=== PATIENT | female | born 1985 | race Caucasian/White ===

== ENCOUNTER 2020-05-30 09:48 | Emergency (ER) | payer MEDICAID, SELFPAY ==
[2020-05-30 10:00] VITALS: BP 108/77; PULSE 109; RESP 16; TEMP 36.1; O2SAT 100
--- NOTE | 2020-05-30 10:17 | ED.GENADULT ---
HPI - General Adult General Chief complaint: Skin/Abscess/Foreign Body Stated complaint: rash on my arms, now its everywhere Time Seen by Provider: 05/30/20 10:03 Source: patient Mode of arrival: ambulatory Limitations: no limitations History of Present Illness HPI narrative: Patient presents with chief complaint of a fine raised pruritic rash on her arms stomach and legs. Patient states she has not been exposed to any known soaps lotions or detergents that could have caused her symptoms. Patient states she did recently relocate here from [place]. She denies known exposure to bedbugs or other biting insects and states out of her and children she is the only one of the rash. She denies any fever, chills, shortness of breath, involvement of the face or throat, issue swallowing or breathing or any other symptoms. Patient states she has been taking Benadryl but the rash has not resolved. Patient denies any chronic medical conditions. Related Data Allergies Allergy/AdvReac Type Severity Reaction Status Date / Time Penicillins Allergy Unknown Verified 05/30/20 10:07 Review of Systems Review of Systems: Narrative: CONSTITUTIONAL: Denies fever, chills, or sweats. EYES: Denies visual changes, redness, or discharge. ENT: Denies rhinorrhea, congestion, sore throat, or otalgia. CARDIOVASCULAR: Denies chest pain, palpitations, or edema. RESPIRATORY: Denies cough or dyspnea. GASTROINTESTINAL: Denies abdominal pain, nausea, vomiting, or diarrhea. GENITOURINARY: Denies dysuria or hematuria. SKIN: Reports rash and itching. MUSCULOSKELETAL: Denies back pain, joint pain, or myalgia. NEUROLOGIC: Denies headache, numbness, dizziness, or weakness. PSYCHIATRIC: Denies anxiety or depression. PMFSH Social History Social History Gender identity (if verbalized by the patient): Female Exam Narrative: Exam Narrative: GENERAL: Well-appearing, well-nourished, and in no acute distress. HEAD: Normocephalic, atraumatic. No facial involvement of rash. EYES: PERRLA and EOMI. ENT: Nares clear, no rhinorrhea or epistaxis. Mucous membranes moist. Bilateral TMs pearly carrion nonbulging NECK: Supple. No adenopathy or masses. CHEST: Clear to auscultation. No respiratory distress. No wheezes rales or rhonchi HEART: Regular rate and rhythm. No murmur heard. Normal peripheral pulses. EXTREMITIES: Normal range of motion. No edema. SKIN: Warm, dry. fine, Slightly raised rash to the arms back abdomen and legs. Excoriations noted. There is not weeping or drainage. It is not vesicular-like lesions. NEURO: No focal deficits. Alert and oriented x3. PSYCH: Normal mood and affect. Course Vital Signs Vital signs: Vital Signs Temperature 97 F L 05/30/20 10:00 Pulse Rate 109 H 05/30/20 10:00 Respiratory Rate 16 05/30/20 10:00 Blood Pressure 108/77 05/30/20 10:00 Pulse Oximetry 100 05/30/20 10:00 Temperature 97 F L 05/30/20 10:00 Pulse Rate 109 H 05/30/20 10:00 Respiratory Rate 16 05/30/20 10:00 Blood Pressure 108/77 05/30/20 10:00 Pulse Oximetry 100 05/30/20 10:00 Medical Decision Making MDM Narrative Medical decision making narrative: Patient's rash appears to be an allergic reaction. We will give her a Solu-Medrol injection and discharge her with a Medrol Dosepak, Pepcid and Zyrtec. Patient instructed to evaluate her environment for any potential irritants. Patient instructed to follow-up with her primary care for reevaluation if symptoms persist. Patient instructed to return to emergency department she has any emergent symptoms. Differential Diagnosis Differential Diagnosis: Abscess, herpes zoster, allergic reaction Vital Signs Vital Signs: Vital Signs Temperature 97 F L 05/30/20 10:00 Pulse Rate 109 H 05/30/20 10:00 Respiratory Rate 16 05/30/20 10:00 Blood Pressure 108/77 05/30/20 10:00 Pulse Oximetry 100 05/30/20 10:00 Temperature 97 F L 05/30/20 10:00 Pulse Rate 109 H 05/30/20 10:00 R
[2020-05-30] MEDS: methylPREDNISolone SOD SUCC 125 MG VIAL IM (10:37)
== END 2020-05-30 10:50 | disposition home or self-care (01) ==
PROVIDERS: Emergency Provider Emergency Medicine
DX: L25.9 Unspecified contact dermatitis, unspecified cause (principal)
CPT/HCPCS: 96372; 99283; J2930

== ENCOUNTER 2021-05-30 11:41 | Outpatient (CLI) | payer OTHER, SELFPAY ==
--- NOTE | 2021-05-30 | ECG_ITS ---
Measurements Intervals Colbert Rate: 87 P: 64 OR: 158 QRS: 73 QRSD: 72 T: 65 QT: 340 QTc: 411 Interpretive Statements SINUS RHYTHM NORMAL ECG Electronically Signed On 05-30-2021 12:28:45 BENEFITS ADMINISTRATOR by Kermit Irene D.O.
== END 2021-05-30 11:42 | disposition home or self-care (01) ==
LOC: ANHCARD 11:46
PROVIDERS: PCP Obstetrics & Gynecology; Visit Provider Obstetrics & Gynecology
DX: R00.2 Palpitations (principal)
CPT/HCPCS: 93005

== ENCOUNTER 2021-08-31 15:01 | Outpatient (RCR) | payer OTHER, SELFPAY ==
--- NOTE | ~2021-08-31 | US_ITS ---
EXAMINATION: US OB follow up DATE: 08/31/2021 16:25 INDICATION: growth assessment and amniotic fluid index measurement during third trimester pregn rizwan TECHNIQUE: Real-time ultrasound of the pelvis was performed. The interpreting radiologist was not pre sent for the study. COMPARISON: None. FINDINGS: There is a single living fetus in vertex presentation. The placenta is anterior. card iac activity and movement are noted. heart rate is 144 beats per minute (bpm). The amniot ic fluid index is 15.2 cm which is normal (normal range: 7.9 cm to 24.9 cm). The following biometric data were obtained: Biparietal diameter (BPD): 8.9 cm; head circumference (HC): 31.6 cm; abdominal circumference (AC): 31 .7 cm; femur length (FL): 6.8 cm. These measurements are concordant. Estimated weight is 2685 g +/- 402 g, which correlates with the 46th percentile when 10/01/2021 is used as estimated date of delivery. As single measurements, these parameters are each equal to the following estimated gestational ages w ith ranges of +/- 2 standard deviations: BPD: 36 weeks 2 days +/- 3 weeks 1 days. HC: 35 weeks 3 days +/- 3 weeks 0 days. AC: 35 weeks 4 days +/- 3 weeks 0 days. FL: 34 weeks 6 days +/- 3 weeks 0 days. estimated gestational age based solely on measurements from this exam is 35 weeks 4 days +/- 2 weeks 3 days. IMPRESSION: 1. Single living fetus in vertex presentation. 2. Normal amniotic fluid index. 3. Estimated weight is 2685 g +/- 402 g, which correlates with the 46th percentile when 10/02/19 22 is used as estimated date of delivery. Reviewed, dictated and finalized at location B. N DANCE INSTRUCTOR IMPRESSION: 1. Single living fetus in vertex presentation. 2. Normal amniotic fluid index. 3. Estimated weight is 2685 g +/- 402 g, which correlates with the 46th p ercentile when 10/01/2021 is used as estimated date of delivery.
[2021-08-31 16:30] VITALS: PULSE 80
== END 2021-09-29 13:21 | disposition home or self-care (01) ==
LOC: ANHOBOP 15:01
PROVIDERS: Visit Provider Obstetrics & Gynecology
DX: O09.513 Supervision of elderly primigravida, third trimester (principal); Z3A.35 35 weeks gestation of pregnancy
CPT/HCPCS: 59025; 76816

== ENCOUNTER 2021-09-24 07:52 | Inpatient (IN) | payer OTHER, SELFPAY ==
[2021-09-24] VITALS (40 sets, daily range): BP systolic 87–113; BP diastolic 50–81; PULSE 53–94; RESP 12–16; TEMP 36.1–37.2; O2SAT 97–100; BMI 25.2
--- NOTE | 2021-09-24 08:38 | PM.IMHP ---
H&P: HPI History of Present Illness Date/Time: 09/24/21 08:15 Farheen is a 36yo @ 39.1wks (RYAN 09/30/21) who presents for scheduled repeat section. She reports good movement. No contractions, bleeding, or leakage of fluid. She has had regular care. Her is complicated by: - Previous x 4, h/o x1 - AMA; NIPT LR male - H/o BTL with tubal reversal surgery; declines BTL Chief Complaint: scheduled Review of Systems Review of Systems: All systems reviewed & are unremarkable except as noted in HPI and below (HPI) [facility] Surgical History Surgical History Delivery by section (~05/02/00) primary c/s Delivery by section (~02/2011) repeat c/s with tubal Delivery by section (~07/2017) repeat Delivery by section (~07/2018) rpt c/s H/O breast augmentation History of appendectomy History of reversal of tubal ligation (~05/2016) Social History Social History Gender identity (if verbalized by the patient): Female Meds Home Medications and Allergies Home Medications Medication Instructions Recorded Confirmed Type cetirizine 10 mg tablet 10 mg PO DAILY #10 tablet 05/30/20 Rx famotidine 20 mg tablet 20 mg PO DAILY #10 tablet 05/30/20 Rx ferrous sulfate 325 mg (65 mg 325 mg PO DAILY 07/17/21 07/17/21 History iron) tablet vits no.126-ferrous fum tablet PO 07/17/21 07/17/21 History 28 mg iron-folic acid 800 mcg tablet fluconazole 150 mg tablet 150 mg PO ONCE #1 tablet 07/23/21 Rx Allergies Allergy/AdvReac Type Severity Reaction Status Date / Time Penicillins Allergy Unknown Verified 08/29/21 17:44 Exam Const: General: cooperative, healthy appearing, comfortable and no acute distress Resp: Effort & Inspection: normal respiratory effort Cardio: Rate: regular rate GI: Inspection: normal to inspection GI Palp: No abdominal tenderness and Yes Soft to palpation : Other: FHT's: 130's/ mod hunter/ + accels/ no decels - cat 1 TOCO: irritability Presentation: cephalic Membranes: intact Skin: General skin exam: normal color Neuro: General: patient oriented x3 Psych: Appearance: grossly normal Affect: normal affect Attitude: cooperative Assessment and Plan Assessment and plan (1) Previous section: Code(s): Z98.891 - History of uterine scar from previous surgery Status: Acute (2) Advanced maternal age (AMA) in : Status: Acute Additional Plan - For repeat section - All risks and benefits explained in detail including possible risk of blood transfusion or need for hysterectomy in the event of significant bleeding
--- NOTE | 2021-09-24 08:38 | WPDHPUPDATE1 ---
History and Physical Update Update Date/Time: 09/24/21 08:38 History and Physical has been reviewed, including an updated exam of the patient. There are NO changes in the patient's condition. Risks, benefits, and alternatives have been discussed and questions answered. Patient agrees to proceed with procedure.
[2021-09-24 08:48] LABS: Basophils Percent Auto 0.3 % (0.2-1.2); Eosinophils Absolute Auto 0.2 K/mm3 (0-0.3); Eosinophils Percent Auto 1.5 % (0-4.4); Hematocrit 37.8 % (37.0-47.0); Hemoglobin 12.3 g/dL (12.0-15.0); Immature Granulocyte Absolute 0.13 K/mm3 (0.00-0.031); Immature Granulocyte Percent A 1.1 % (0-0.5); Lymphocytes Absolute Auto 2.25 K/mm3 (0.9-3.2); Lymphocytes Percent Auto 18.3 % (18.3-44.2); Mean Corpuscular HGB Conc 32.5 g/dl (32-36); Mean Corpuscular Hemoglobin 29.9 pg (26-34); Mean Corpuscular Volume 91.7 fl (80-100); Monocytes Absolute Auto 1.1 K/mm3 (0.1-0.6); Monocytes Percent Auto 9.2 % (2.6-8.5); Neutrophils Absolute Auto 8.5 K/mm3 (1.3-6.7); Neutrophils Percent Auto 69.6 % (45.5-73.1); Platelet Count Result 340 k/mm3 (150-375); Red Blood Count 4.12 M/mm3 (4.2-5.4); Red Cell Distribution Width 13.3 % (11.5-14.5); White Blood Count 12.3 K/mm3 (4.5-10.0)
--- NOTE | 2021-09-24 10:01 | WPDANESEPPF ---
Anes - Initial Pre Proc Eval Procedure: Operation Date: 09/24/21 10:30 Proposed Procedures p Section - Nessa Fay MD Date/Time: 09/24/21 10:01 Surgeon: Nessa Fay MD Pre Op Diagnosis: C/S Patient Data Age: 36 Gender: F Height: 1.68 m Weight: 70.91 kg Last Vital Signs Pulse 94 09/24/21 08:31 BP 113/72 09/24/21 08:31 Allergies Allergy/AdvReac Type Severity Reaction Status Date / Time Penicillins Allergy Unknown Verified 08/29/21 17:44 Home Medications Medication Instructions Recorded Confirmed Type vits no.126-ferrous fum 1 tablet PO DAILY 07/17/21 09/24/21 History 28 mg iron-folic acid 800 mcg tablet Laboratory Tests 09/24/21 09/24/21 09/24/21 08:25 08:25 08:25 WBC 12.3 K/mm3 H K/mm3 (4.5-10.0) RBC 4.12 M/mm3 L M/mm3 (4.2-5.4) Hgb 12.3 g/dL g/dL (12.0-15.0) Hct 37.8 % % (37.0-47.0) MCV 91.7 fl fl (80-100) MCH 29.9 pg pg (26-34) MCHC 32.5 g/dl g/dl (32-36) RDW 13.3 % % (11.5-14.5) Plt Count 340 k/mm3 k/mm3 (150-375) MPV 10.0 fl fl (7.4-10.4) Immature Gran % (Auto) 1.1 % H % (0-0.5) Neut % (Auto) 69.6 % % (45.5-73.1) Lymph % (Auto) 18.3 % % (18.3-44.2) [place] % (Auto) 9.2 % H % (2.6-8.5) Eos % (Auto) 1.5 % % (0-4.4) Baso % (Auto) 0.3 % % (0.2-1.2) Lymph # (Auto) 2.25 K/mm3 K/mm3 (0.9-3.2) [place] # (Auto) 1.1 K/mm3 H K/mm3 (0.1-0.6) Eos # (Auto) 0.2 K/mm3 K/mm3 (0-0.3) Baso # (Auto) 0.0 K/mm3 K/mm3 (0.0-0.1) Abs Immat Gran (auto) 0.13 K/mm3 H K/mm3 (0.00-0.031) Absolute Neuts (auto) 8.5 K/mm3 H K/mm3 (1.3-6.7) Absolute Nucleated RBC 0.0 K/mm3 K/mm3 (0.0-0.012) Nucleated RBC % 0.0 % % (0.0-0.2) RPR Pending Blood Type A Positive Antibody Screen Negative Patient hx anesthesia problems: none Family hx anesthesia problems: none Results Review: All pre-operative results and documents have been reviewed as part of the pre-operative evaluation. [facility] Surgical History Surgical History Delivery by section (~05/02/00) primary c/s Delivery by section (~02/2011) repeat c/s with tubal Delivery by section (~07/2017) repeat Delivery by section (~07/2018) rpt c/s H/O breast augmentation History of appendectomy History of reversal of tubal ligation (~05/2016) Social History Social History Substance use: never Gender identity (if verbalized by the patient): Female Spiritual care concerns: No Anes - Eval Final PreProcedure Day of Procedure 09/24/21 10:01 Patient weight: normal Heart: regular rate and rhythm Lungs: clear to auscultation Airway: Mallampati scale class 1 Neurological: alert and oriented Last oral intake: >/= 8 hours ASA classification: II Emergent: no Anesthetic plan: proceed Anesthesia type and monitoring: regional spinal and standard monitoring Results Review: All pre-operative results and documents have been reviewed as part of the pre-operative evaluation. Informed Consent: The patient's anesthetic plan and its attendant risks and benefits were discussed with the patient/family/POA. Questions were solicited and answers provided to the satisfaction of the patient/family/POA.
[2021-09-24] MEDS: LACTATED RINGERS 1,000 ML 125 ML IV CONT (10:11)
[2021-09-24 11:07] LABS: HIV 1/2 Ab P24 Ag Result Negative (Negative)
[2021-09-24] MEDS: KETOROLAC 30 MG/ML VIAL (*BKC) IV PUSH ×2 (12:00→16:59)
--- NOTE | 2021-09-24 12:34 | PM.OBPRVD ---
OB - Delivery Note Procedure Delivery date: 09/24/21 Procedure: Procedures Operation Date: 09/24/21 10:30 <No data on this case meets the specified criteria> Events: Previous Delivery Quantitative Blood Loss (ml): 340 Anesthesia type: Spinal Disposition: Floor Baby Date of : 09/24/21 Time of : 11:56 Weeks of gestation at delivery: 39 (.1) gender: Male Weight (pounds): 7 Weight (ounces): 3 presentation: vertex position: Left Occiput Transverse Cord Vessel Description: 3 Vessels and Clamped/Cut score one minute: 9 score five minutes: 9 Narrative: She was counseled on all risks and benefits in detail. She was taken to the operating room where spinal epidural was placed. She was then prepped and draped in the normal sterile fashion. She received 2g Ancef and a time out was performed. A Pfannenstiel incision was made in the skin and carried down to the underlying fascia. The fascia was nicked on either side of the midline and the fascial incision was extended laterally and superiorly. The fascia was then elevated and the underlying rectus muscles were dissected off the fascia, superiorly and inferiorly. The rectus muscles were then in the midline and the peritoneum was entered bluntly. Once adequate exposure was obtained, a Mobius self retractor was placed within the abdomen. A low transverse incision was made on the lower uterine segment and clear fluid was noted. The occiput was brought to the hysterotomy and the head was easily delivered. The shoulder and body then followed without complications. The had spontaneous cry and the mouth and nose were bulb suctioned. The cord was clamped and cut and the infant was handed off to the awaiting pediatric nurse. A segment of the cord was collected for cord gases. The remaining cord blood was collected for typing. With pitocin infusing, the placenta delivered with gentle traction on the cord without complications. The uterus was then cleared out of all clots and debris using a clean, moist lap. The hysterotomy was then repaired in a running, interlocking fashion using 0 Vicryl. A second layer imbricating suture was then made using 0 Vicryl. The hysterotomy was found to be hemostatic and good uterine tone was noted. The bilateral adnexa were examined and found to be normal. The pelvis was cleared of all clots and fluid. The Mobius retractor was removed from the abdomen. The peritoneum, muscle, and fascia were examined and made hemostatic with bovie cautery. The fascia was then repaired using a 0 Vicryl suture in a running fashion. The subcutaneous tissue was then irrigated and made hemostatic with bovie cautery. The skin was then closed using 4-0 Monocryl in a running subcuticular fashion. Sponge, lap, needle and instrument counts were correct at the end of the procedure x2. The patient tolerated the procedure well and was taken to recovery in a stable condition.
[2021-09-24] MEDS: OXYTOCIN 30 UNITS/NS 500 ML 30 UNITS/500 ML BAG 125 UNITS IV CONT (13:20)
--- NOTE | 2021-09-24 13:41 | LDADM ---
This patient, Farheen Morris, was admitted to Labor/Delivery/Recovery 118 on 09/24/21 at 07:52. Plans for labor, pain management and were discussed with patient. Patient/family oriented to hospital policies and general routines including ID bracelet, bed and alarms, visiting hours, pain management, procedures, bathroom and other care routines, personal items, smoking policy, room service/diet and guest tray routines, security routines, and visiting hours. Patient/Family are encouraged to report perceived risks to care and to ask questions if they do not understand what they are told or what they should do. See [facility]BIX for further documentation.
[2021-09-24] MEDS: fentaNYL CITRATE INJ (*CRX) 100 MCG/2 ML VIAL 25 MCG IV PUSH ×2 (13:48→14:11)
--- NOTE | 2021-09-24 15:24 | PC.NURSE ---
Patient transferred to post room #292 via stretcher. Support person present. Oriented to unit, room, information board, rooming in, admission packet and security measures. Patient verbalizes understanding.
[2021-09-24] MEDS: DEXTROSE 5%/0.45% SOD CHL 1,000 ML 125 ML IV CONT (16:59)
[2021-09-24] MEDS: HYDROcodone/acetaminophen (*CRX) 5-325 MG TABLET 1 TAB PO (20:08)
[2021-09-25] MEDS: HYDROcodone/acetaminophen (*CRX) 5-325 MG TABLET 1 TAB PO ×5 (02:39→21:40)
[2021-09-25] MEDS: IBUPROFEN 600 MG TABLET PO ×3 (02:39→21:40)
[2021-09-25 04:00] VITALS: BP 98/63; PULSE 84; RESP 16; TEMP 37.1; O2SAT 99
[2021-09-25 05:40] LABS: Basophils Absolute Auto 0.1 K/mm3 (0.0-0.1); Basophils Percent Auto 0.3 % (0.2-1.2); Eosinophils Absolute Auto 0.1 K/mm3 (0-0.3); Eosinophils Percent Auto 0.2 % (0-4.4); Hemoglobin 9.3 g/dL (12.0-15.0); Immature Granulocyte Absolute 0.17 K/mm3 (0.00-0.031); Immature Granulocyte Percent A 0.8 % (0-0.5); Lymphocytes Absolute Auto 2.03 K/mm3 (0.9-3.2); Lymphocytes Percent Auto 9.3 % (18.3-44.2); Mean Corpuscular HGB Conc 32.1 g/dl (32-36); Mean Corpuscular Hemoglobin 30.4 pg (26-34); Mean Corpuscular Volume 94.8 fl (80-100); Mean Platelet Volume 10.2 fl (7.4-10.4); Monocytes Absolute Auto 2.3 K/mm3 (0.1-0.6); Monocytes Percent Auto 10.8 % (2.6-8.5); Neutrophils Absolute Auto 17.1 K/mm3 (1.3-6.7); Neutrophils Percent Auto 78.6 % (45.5-73.1); Platelet Count Result 286 k/mm3 (150-375); Red Blood Count 3.06 M/mm3 (4.2-5.4); Red Cell Distribution Width 13.3 % (11.5-14.5); White Blood Count 21.7 K/mm3 (4.5-10.0)
[2021-09-25] MEDS: POLYSACCHARIDE IRON COMPLEX 150 MG CAPSULE PO (07:28)
[2021-09-25] MEDS: MULTIVIT/MIN/PREN/FOL AC/IRON TABLET 1 TAB PO (07:29)
[2021-09-25] MEDS: DOCUSATE SODIUM 100 MG CAPSULE PO ×2 (07:29→17:13)
--- NOTE | 2021-09-25 07:30 | PM.OBPNVD ---
OB - PN: Subj Subjective Date/time seen: 09/25/21 07:15 Narrative: POD#1 Farheen reports doing well today. Her bleeding is light. Her pain is controlled. She is tolerating regular diet. She has ambulated around the room. The duran catheter has been removed; no spontaneous void yet. She has passed gas. She denies any issues with her incision. She is breast feeding. She would like her son circumcised. OB - PN: Obj Data Labs CBC & Chem 7: 09/25/21 03:51 Labs: Laboratory Results - last 24 hr 09/24/21 09/24/21 09/24/21 08:25 08:25 10:00 WBC 12.3 H RBC 4.12 L Hgb 12.3 Hct 37.8 MCV 91.7 MCH 29.9 MCHC 32.5 RDW 13.3 Plt Count 340 MPV 10.0 Immature Gran % (Auto) 1.1 H Neut % (Auto) 69.6 Lymph % (Auto) 18.3 [place] % (Auto) 9.2 H Eos % (Auto) 1.5 Baso % (Auto) 0.3 Lymph # (Auto) 2.25 [place] # (Auto) 1.1 H Eos # (Auto) 0.2 Baso # (Auto) 0.0 Abs Immat Gran (auto) 0.13 H Absolute Neuts (auto) 8.5 H Absolute Nucleated RBC 0.0 Nucleated RBC % 0.0 HIV 1&2 Ab/P24 Ag 4thGn Negative Blood Type A Positive Antibody Screen Negative 09/25/21 03:51 WBC 21.7 H RBC 3.06 L Hgb 9.3 L D Hct 29.0 L MCV 94.8 MCH 30.4 MCHC 32.1 RDW 13.3 Plt Count 286 MPV 10.2 Immature Gran % (Auto) 0.8 H Neut % (Auto) 78.6 H Lymph % (Auto) 9.3 L [place] % (Auto) 10.8 H Eos % (Auto) 0.2 Baso % (Auto) 0.3 Lymph # (Auto) 2.03 [place] # (Auto) 2.3 H Eos # (Auto) 0.1 Baso # (Auto) 0.1 Abs Immat Gran (auto) 0.17 H Absolute Neuts (auto) 17.1 H Absolute Nucleated RBC 0.0 Nucleated RBC % 0.0 HIV 1&2 Ab/P24 Ag 4thGn Blood Type Antibody Screen OB - PN A/P Plan day: 1 Plan: routine care Comments: - awaiting void - will recheck CBC later this morning to show stability - circumcision later today Time Spent With Patient Time: Total time spent is greater than 50% in coordination of care (as documented) at patient's floor/unit and/or counseling patient: Review of Systems Constitutional: Constitutional: Denies chills, Denies fever(s) and Denies headache(s) Eyes: Eyes: Denies change in vision ENT: Denies dizziness and Denies headache(s) Cardiovascular: Cardiovascular: Denies chest pain, Denies palpitations and Denies dyspnea Respiratory: Respiratory: Denies cough and Denies dyspnea Gastrointestinal: Gastrointestinal: Denies nausea and Denies vomiting Genitourinary: Comments: normal bleeding Neurologic: Denies dizziness and Denies headache(s) Endocrine: Endocrine: Denies palpitations Exam Const: General: cooperative, comfortable and no acute distress Orientation/consciousness: patient oriented x3 Resp: Effort & Inspection: normal respiratory effort Auscultation: clear to auscultation bilaterally Cardio: Rate: regular rate GI: Inspection: non-distended and incision (covered with clean dressing) GI Palp: Yes abdominal tenderness (appropriate) and Yes Soft to palpation Auscultation: normal bowel sounds : Other: fundus firm Skin: General skin exam: normal color Neuro: General: patient oriented x3 Extrem: General: normal to inspection Psych: Appearance: grossly normal Affect: normal affect Attitude: cooperative
[2021-09-25 08:15] VITALS: BP 95/59; PULSE 92; RESP 18; TEMP 36.6; O2SAT 100
--- NOTE | 2021-09-25 09:33 | WPDANLDPN2 ---
Anes-Prog Note L&D Date/Time: 09/25/21 09:33 Comfortable throughout: section Neuraxial method: spinal Epidural/Spinal procedure site: clean & non-tender Neuro status: Neuro function grossly intact. Cardiovascular status: normal Respiratory status: normal Airway patency: baseline Mental status: baseline Post-Op hydration status: normal Vital Signs: Last Vital Signs Temp 37.1 C 09/25/21 04:00 Pulse 84 09/25/21 04:00 Resp 16 09/25/21 04:00 BP 98/63 L 09/25/21 04:00 Pulse Ox 99 09/25/21 04:00 Pain score (VAS): 3/10 I/O: Intake & Output 09/24/21 09/25/21 09/25/21 23:59 07:59 15:59 Intake Total 740 1499 Output Total 1425 950 Balance -685 549 Post-procedural complaints: none Patient feedback: Patient satisfied with anesthetic care.
--- NOTE | 2021-09-25 09:33 | WPDANLDNPN2 ---
Anes-Prog Note L&D-Neuraxial Date/Time: 09/25/21 09:33 Neuraxial medications: intrathecal PF morphine Opiod-related complaints: none Patient feedback: Patient satisfied with post-operative pain management.
[2021-09-25 11:05] LABS: Hematocrit 31.9 % (37.0-47.0); Hemoglobin 10.3 g/dL (12.0-15.0); Mean Corpuscular HGB Conc 32.3 g/dl (32-36); Mean Corpuscular Hemoglobin 30.4 pg (26-34); Mean Corpuscular Volume 94.1 fl (80-100); Mean Platelet Volume 10.1 fl (7.4-10.4); Platelet Count Result 313 k/mm3 (150-375); Red Blood Count 3.39 M/mm3 (4.2-5.4); Red Cell Distribution Width 13.4 % (11.5-14.5); White Blood Count 17.1 K/mm3 (4.5-10.0)
[2021-09-25 11:37] VITALS: BP 92/53; PULSE 74; RESP 16; TEMP 36.5; O2SAT 100
[2021-09-25 11:52] LABS: Rapid Plasma Reagin Non-Reactive (NonReactive)
[2021-09-25 19:57] VITALS: BP 105/66; PULSE 88; RESP 18; TEMP 36.4; O2SAT 100
[2021-09-25] MEDS: SIMETHICONE 80 MG TAB.CHEW PO (21:41)
[2021-09-26] MEDS: SIMETHICONE 80 MG TAB.CHEW PO (05:07)
[2021-09-26] MEDS: HYDROcodone/acetaminophen (*CRX) 5-325 MG TABLET 1 TAB PO ×2 (05:07→10:17)
[2021-09-26] MEDS: IBUPROFEN 600 MG TABLET PO (05:07)
[2021-09-26 07:55] VITALS: BP 102/67; PULSE 88; RESP 20; TEMP 36.2; O2SAT 100
--- NOTE | 2021-09-26 08:51 | PC.NURSE ---
On 09/26/21, the student, Cass Neely, provided care and completed [facility] documentation on this patient. I have reviewed the student's documentation and agree with the findings.
--- NOTE | 2021-09-26 09:59 | PC.NURSE ---
[id number] Introductions were made and mother led the conversation with regards to her experience feeding her baby. Mother states she is latching well without pain and voiced she knows the difference between a optimal latch and a painful latch. Her nipples are tender but without injury. Reminded parents to use good handwashing to prevent infection. Infant has had appropriate feedings in the past 24 hours and meets the outcomes for weight, output and jaundice. Mother states she feels confident to continue effectively her infant at home. Reviewed production of human milk, transition of milk, signs of adequate intake and engorgement prevention/relief and when to call the care provider using the mom and baby guide. Reviewed medications mother is taking with information provided by [facility], community resources and outpatient services as listed in the mom and baby guide/[facility] website. Parents requested to rent a pump from the station and RN will set that up for them. Reinforced watching for feeding cues for responsive feeding and how to stimulate to initiate feeding three hours from the start of the last feeding. Mother voiced understanding of information shared. Reported to primary RN.
[2021-09-26] MEDS: DOCUSATE SODIUM 100 MG CAPSULE PO (10:17)
[2021-09-26] MEDS: MULTIVIT/MIN/PREN/FOL AC/IRON TABLET 1 TAB PO (10:17)
--- NOTE | 2021-09-26 12:10 | P.DS_ITS ---
DS: Admitting Diagnosis Discharge Date 09/26/21 Admitting Diagnosis Previous section DS: Discharge Diagnosis Discharge Diagnosis (1) S/P section: Code(s): Z98.891 - History of uterine scar from previous surgery Status: Acute OB - DS: Summary OB Procedures : NST and Ultrasound OB Procedures Intrapartum: low cervical, transverse OB Procedures: : None Peripartum Data Infant Delivery Method: Section Procedures: Procedures Operation Date: 09/24/21 10:30 Actual Procedure Side Surgeon p Section Bilateral Nessa Fay MD complications: none Stella 1: Gender: Male Disposition of : home Status at Discharge Functional status at discharge: independent ambulation Overall status at discharge: patient is back to baseline Time Spent with Patient Time attestation: Total time spent providing and/or coordinating discharge services: Time spent: Less than 30 minutes Exam Const: General: cooperative, healthy appearing, comfortable and no acute distress Orientation/consciousness: patient oriented x3 Resp: Effort & Inspection: normal respiratory effort Auscultation: clear to auscultation bilaterally Cardio: Rate: regular rate GI: Inspection: non-distended and incision (covered with clean dressing) GI Palp: No abdominal tenderness and Yes Soft to palpation Auscultation: normal bowel sounds : Other: fundus firm Skin: General skin exam: normal color Neuro: General: patient oriented x3 Extrem: General: normal to inspection Psych: Appearance: grossly normal Affect: normal affect Attitude: cooperative Discharge Plan Discharge Attending physician on discharge: Nessa Fay Discharging Clinician: Nessa Fay Anticipated Discharge Date/Time: 09/26/21 15:00 Patient Disposition: Home, Self-Care Activity: may shower, no straining, may drive after 2 weeks and pelvic rest Diet: as tolerated and regular Discharge Instructions: Remove dressing by 09/30/21 No heavy lifting >10lbs for 6 wks Patient Instructions: Antibiotic Form Stand Alone Forms: General Discharge Information Follow-up/Referrals: Nessa Fay MD [Physician] - 4 Weeks Discharge Medications: New acetaminophen [Mapap (acetaminophen)] 325 mg Tablet 650 mg PO Q6H PRN (Reason: Mild Pain (1-3)) 10 Days Qty: 60 RF: 0 hydrocodone-acetaminophen 5-325 mg Tablet 1 tablet PO Q3H PRN (Reason: Moderate Pain (4-6)) 3 Days Qty: 24 RF: 0 docusate sodium 100 mg Capsule 100 mg PO BID 30 Days Qty: 60 RF: 0 polysaccharide iron complex 150 mg iron Capsule 150 mg PO BIDWM 30 Days Qty: 60 RF: 0 ibuprofen 600 mg Tablet 600 mg PO Q6H PRN (Reason: Cramping) 10 Days Qty: 40 RF: 0 Continued Classic 28 mg iron- 800 mcg tablet 1 tablet PO DAILY 90 Days Qty: 90 RF: 3 Date of admission: 09/24/21 07:52 Primary Care Provider: PHYSICIAN,[employer] NETWORK ADMINISTRATOR Admitting Provider: Nessa Fay Attending physician on admission: Nessa Fay Condition: Stable
[2021-09-27 07:49] VITALS: BP 99/68; PULSE 80; RESP 16; TEMP 36.9; O2SAT 100
== END 2021-09-26 13:05 | disposition home or self-care (01) | DRG 540 ==
LOC: ANHLDR 07:56 → ANHOB2 15:28
PROVIDERS: Admitting Provider Obstetrics & Gynecology; Visit Provider Obstetrics & Gynecology
PROC: 10D00Z1 Extraction of Products of Conception, Low, Open Approach (ICD-10-PCS; CPT 59514; principal; 2021-09-24 10:30)
DX: O34.211 Maternal care for low transverse scar from previous cesarean delivery (principal); Z37.0 Single live birth; Z3A.39 39 weeks gestation of pregnancy
CPT/HCPCS: 36415; 85025; 85027; 86592; 86703; 86850; 86900; 86901; A9270; G0432; J0131; J1100; J1885; J2274; J2370; J2405; J2590; J3010; J7120